=== PATIENT | female | born 1935 ===

== ENCOUNTER 2017-12-20 13:01 | Inpatient (IN) | payer MEDICARE ==
[2017-12-20] MEDS ORDERED: IPRATROPIUM-ALBUTEROL 3 ML NEB INHALATION STA (13:19)
--- NOTE | 2017-12-20 13:21 | ED ---
General Adult HPI - General Chief complaint: Shortness of Breath Stated complaint: Pneumonia Time Seen by Provider: 12/20/17 13:12 Source: patient, family, RN notes reviewed Mode of arrival: wheelchair Limitations: no limitations - History of Present Illness Initial comments: Patient is a pleasant 82-year-old female presenting to the emergency department with reported pneumonia. Patient has had cough and difficulty breathing for a couple of days. Patient did see Dr. Tiwari and had chest x-ray showing pneumonia. Patient has arty started antibiotics and steroids. Patient has been fatigued. No fevers. Patient has had cough with green sputum. - Related Data Home Medications Medication Instructions Recorded Confirmed Aspirin 81 mg PO DAILY 02/09/15 12/20/17 Atenolol [Atenolol] 50 mg PO QAM 02/09/15 12/20/17 Fluticasone/Salmeterol [Advair 1 puff INHALATION RT-BID 02/09/15 12/20/17 250-50 Diskus] Meloxicam [Meloxicam] 15 mg PO DAILY 02/09/15 12/20/17 Multivitamins, Thera [Multivitamin] 1 tab PO DAILY 02/09/15 12/20/17 Ripley-3 Fatty Acids/Fish Oil [Fish 1 tab PO DAILY 02/09/15 12/20/17 Oil 1,000 mg Softgel] Ascorbic Acid [Vitamin C] 500 mg PO DAILY 12/20/17 12/20/17 Azithromycin [Zithromax Z-pack] See Taper PO DIRECTED 12/20/17 12/20/17 Calcium 1,000 mg PO DAILY 12/20/17 12/20/17 Levothyroxine Sodium [Synthroid] 50 mcg PO DAILY 12/20/17 12/20/17 Pantoprazole Sodium [Protonix] 40 mg PO BID 12/20/17 12/20/17 amLODIPine [Norvasc] 10 mg PO HS 12/20/17 12/20/17 methylPREDNISolone [Medrol Dose See Taper PO DIRECTED 12/20/17 12/20/17 Pack] Allergies Allergy/AdvReac Type Severity Reaction Status Date / Time latex Allergy Rash/Hives Verified 12/20/17 13:55 Penicillins Allergy Itching Verified 12/20/17 13:55 Mushroom AdvReac Nausea & Verified 12/20/17 13:55 Vomiting Review of Systems ROS Statement: Those systems with pertinent positive or pertinent negative responses have been documented in the HPI. ROS Other: All systems not noted in ROS Statement are negative. Constitutional: Denies: fever Eyes: Denies: eye pain ENT: Denies: ear pain Respiratory: Reports: cough, dyspnea Cardiovascular: Denies: chest pain Endocrine: Reports: fatigue Gastrointestinal: Denies: abdominal pain Genitourinary: Denies: dysuria Musculoskeletal: Denies: back pain Skin: Denies: rash Neurological: Denies: weakness Past Medical History Past Medical History: COPD, GERD/Reflux, Hyperlipidemia, Hypertension, Thyroid Disorder Additional Past Medical History / Comment(s): SEVERE ACID REFLUX AND DIFFICULTY SWALLOWING MEAT AND CERTAIN FOODS. History of Any Multi-Drug Resistant Organisms: None Reported Past Surgical History: Cholecystectomy, Joint Replacement Additional Past Surgical History / Comment(s): RT KNEE REPLACEMENT, COLONOSCOPY Past Anesthesia/Blood Transfusion Reactions: No Reported Reaction Past Psychological History: No Psychological Hx Reported Smoking Status: Former smoker Past Alcohol Use History: Rare Past Drug Use History: None Reported - Past Family History Mother Family Medical History: Unable to Obtain Sister(s) Family Medical History: Deep Vein Thrombosis (DVT) Father Family Medical History: Deep Vein Thrombosis (DVT) Brother(s) Family Medical History: Deep Vein Thrombosis (DVT) General Exam Limitations: no limitations General appearance: alert, in no apparent distress Head exam: Present: atraumatic Eye exam: Present: normal appearance, PERRL ENT exam: Present: normal oropharynx Neck exam: Present: normal inspection Respiratory exam: Present: wheezes Cardiovascular Exam: Present: regular rate, normal rhythm GI/Abdominal exam: Present: soft. Absent: tenderness Extremities exam: Present: normal inspection. Absent: pedal edema, calf tenderness Neurological exam: Present: alert Psychiatric exam: Present: normal affect, normal mood Skin exam: Present: normal color Course Vital Signs 12/20/17 12/20/17 12/20/17 13:07 13:37 13:47 Temperature 98.1 F Pulse Rate 90 86 100 Respiratory 20 Rate Blood Pressure 120/63 O2 Sat by Pulse 88 L Oximetry 12/20/17 14:45 Temperature 98.9 F Pulse Rate 94 Respiratory 20 Rate Blood Pressure 132/84 O2 Sat by Pulse 93 L Oximetry - Reevaluation(s) Reevaluation #1: 12/20/17 15:42 Patient does meet sepsis criteria diagnosed at 1542. IV antibiotics will be started. Blood culture and lactic acid have been ordered. EKG Findings - EKG Comments: EKG Findings:: Normal sinus rhythm 97. GA 158. QRS 88. QT 362. QTC 459. Left axis. Normal QRS. Nonspecific ST-T. Medical Decision Making - Medical Decision Making Patient reevaluated. Patient and family updated. Case was discussed in detail with Dr. cornejo, who will admit for patient's stated primary care physician Dr. Newsome. - Lab Data Result diagrams: 12/20/17 13:46 12/20/17 13:46 Lab Results 12/20/17 12/20/17 12/20/17 Range/Units 13:46 13:46 13:46 WBC 12.6 H (3.8-10.6) k/uL RBC 4.65 (3.80-5.40) m/uL Hgb 13.6 (11.4-16.0) gm/dL Hct 40.6 (34.0-46.0) % MCV 87.3 (80.0-100.0) fL MCH 29.3 (25.0-35.0) pg MCHC 33.6 (31.0-37.0) g/dL RDW 13.5 (11.5-15.5) % Plt Count 195 (150-450) k/uL Neutrophils % 89 % Lymphocytes % 9 % Monocytes % 2 % Eosinophils % 0 % Basophils % 0 % Neutrophils # 11.3 H (1.3-7.7) k/uL Lymphocytes # 1.1 (1.0-4.8) k/uL Monocytes # 0.2 (0-1.0) k/uL Eosinophils # 0.0 (0-0.7) k/uL Basophils # 0.0 (0-0.2) k/uL PT (9.0-12.0) sec INR (<1.2) APTT (22.0-30.0) sec Sodium 135 L (137-145) mmol/L Potassium 4.1 (3.5-5.1) mmol/L Chloride 100 (98-107) mmol/L Carbon Dioxide 25 (22-30) mmol/L Anion Gap 10 mmol/L BUN 14 (7-17) mg/dL Creatinine 0.60 (0.52-1.04) mg/dL Est GFR (MDRD) Af Amer >60 (>60 ml/min/1.73 sqM) Est GFR (MDRD) Non-Af >60 (>60 ml/min/1.73 sqM) Glucose 133 H (74-99) mg/dL Plasma Lactic Acid Timi (0.7-2.0) mmol/L Calcium 9.3 (8.4-10.2) mg/dL Total Bilirubin 0.4 (0.2-1.3) mg/dL AST 81 H (14-36) U/L ALT 59 H (9-52) U/L Alkaline Phosphatase 146 H (38-126) U/L Total Protein 6.0 L (6.3-8.2) g/dL Albumin 3.5 (3.5-5.0) g/dL Influenza Type A RNA Detected H (Not Detectd) Influenza Type B (PCR) Not Detected (Not Detectd) 12/20/17 12/20/17 Range/Units 13:46 13:46 WBC (3.8-10.6) k/uL RBC (3.80-5.40) m/uL Hgb (11.4-16.0) gm/dL Hct (34.0-46.0) % MCV (80.0-100.0) fL MCH (25.0-35.0) pg MCHC (31.0-37.0) g/dL RDW (11.5-15.5) % Plt Count (150-450) k/uL Neutrophils % % Lymphocytes % % Monocytes % % Eosinophils % % Basophils % % Neutrophils # (1.3-7.7) k/uL Lymphocytes # (1.0-4.8) k/uL Monocytes # (0-1.0) k/uL Eosinophils # (0-0.7) k/uL Basophils # (0-0.2) k/uL PT 9.5 (9.0-12.0) sec INR 1.0 (<1.2) APTT 23.5 (22.0-30.0) sec Sodium (137-145) mmol/L Potassium (3.5-5.1) mmol/L Chloride (98-107) mmol/L Carbon Dioxide (22-30) mmol/L Anion Gap mmol/L BUN (7-17) mg/dL Creatinine (0.52-1.04) mg/dL Est GFR (MDRD) Af Amer (>60 ml/min/1.73 sqM) Est GFR (MDRD) Non-Af (>60 ml/min/1.73 sqM) Glucose (74-99) mg/dL Plasma Lactic Acid Timi 1.0 (0.7-2.0) mmol/L Calcium (8.4-10.2) mg/dL Total Bilirubin (0.2-1.3) mg/dL AST (14-36) U/L ALT (9-52) U/L Alkaline Phosphatase (38-126) U/L Total Protein (6.3-8.2) g/dL Albumin (3.5-5.0) g/dL Influenza Type A RNA (Not Detectd) Influenza Type B (PCR) (Not Detectd) - Radiology Data Radiology results: image reviewed (Chest x-ray shows basilar atelectasis versus scarring versus pneumonia.) Critical Care Time Critical Care Time: Yes Total Critical Care Time: 32 Disposition Clinical Impression: COPD (chronic obstructive pulmonary disease), Sepsis, Pneumonia, Influenza Disposition: ADMITTED IP TO THIS [facility] Condition: Serious Referrals: Nicki Tiwari MD [Primary Care Provider] - 1-2 days Decision Time: 15:44
[2017-12-20 14:01] LABS: Basophils % (A) 0 %; Eosinophils % (A) 0 %; HCT 40.6 % (34.0-46.0); HGB 13.6 gm/dL (11.4-16.0); Lymphocytes # (A) 1.1 k/uL (1.0-4.8); Lymphocytes % (A) 9 %; MCH 29.3 pg (25.0-35.0); MCHC 33.6 g/dL (31.0-37.0); MCV 87.3 fL (80.0-100.0); Monocytes # (A) 0.2 k/uL (0-1.0); Monocytes % (A) 2 %; Neutrophils # (A) 11.3 k/uL (1.3-7.7); Neutrophils % (A) 89 %; Platelet Count 195 k/uL (150-450); RBC 4.65 m/uL (3.80-5.40); RDW 13.5 % (11.5-15.5); WBC 12.6 k/uL (3.8-10.6)
[2017-12-20 14:06] LABS: Partial Thromboplastin Time 23.5 sec (22.0-30.0); Prothrombin Time 9.5 sec (9.0-12.0)
[2017-12-20 14:10] LABS: ALT 59 U/L (9-52); AST 81 U/L (14-36); Albumin 3.5 g/dL (3.5-5.0); Alkaline Phosphatase 146 U/L (38-126); Anion Gap 10 mmol/L; Blood Urea Nitrogen 14 mg/dL (7-17); Calcium 9.3 mg/dL (8.4-10.2); Carbon Dioxide 25 mmol/L (22-30); Chloride 100 mmol/L (98-107); Glucose 133 mg/dL (74-99); Potassium 4.1 mmol/L (3.5-5.1); Sodium 135 mmol/L (137-145); Total Bilirubin 0.4 mg/dL (0.2-1.3)
--- NOTE | 2017-12-20 14:15 | XR ---
EXAMINATION TYPE: XR chest 2V DATE OF EXAM: 12/20/2017 COMPARISON: Prior chest x-ray 12/20/2017 from outside institution, prior chest x-ray 01/19/2017 HISTORY: Dyspnea, left-sided pain and pneumonia TECHNIQUE: Frontal and lateral views of the chest are obtained. FINDINGS: Bandlike areas of increased attenuation are noted at the lung bases. No evident pneumothor ax or pleural effusion. Cardiac mediastinal silhouette, pulmonary vascularity and reuben are stable. Pr ominent lung volume may be indicative of underlying COPD. Left upper lobe pulmonary nodule. Lead. Patient is rotated. IMPRESSION: Basilar atelectasis versus scarring, correlate to exclude pneumonia. Follow-up as indica milka. Lung nodule in the left upper lobe is partially obscured.
[2017-12-20] MEDS ORDERED: OSELTAMIVIR 75 MG CAP PO ONE (15:45)
[2017-12-20] MEDS ORDERED: AZTREONAM 2 GM in SODIUM CHLORIDE 0.9% 100 ML IVPB STA (15:45)
[2017-12-20] MEDS ORDERED: PNEUMONIA PROTOCOL UTILIZED 1 EACH MISC PO PRN (15:45)
[2017-12-20] MEDS ORDERED: IPRATROPIUM-ALBUTEROL 3 ML NEB INHALATION PRN (15:45)
[2017-12-20] MEDS ORDERED: LEVOFLOXACIN 750MG-D5W PMX 750 MG in DEXTROSE/WATER 1 150ML.BAG IVPB STA (15:45)
[2017-12-20] MEDS: IPRATROPIUM-ALBUTEROL 3 ML NEB INHALATION SCH ×2 (16:00→19:05)
[2017-12-20] MEDS: SODIUM CHLORIDE 0.9% 1,000 ML IV SCH (16:08)
[2017-12-20] MEDS ORDERED: ONDANSETRON 4 MG/2 ML VIAL IVP STA (18:20)
[2017-12-20] MEDS ORDERED: ONDANSETRON 4 MG/2 ML VIAL IVP PRN (18:20)
[2017-12-20] MEDS: SYMBICORT 80-4.5 MCG INHALER INHALATION SCH (19:54)
[2017-12-20] MEDS: amLODIPine 10 MG TAB PO SCH (20:57)
[2017-12-20] MEDS: PANTOPRAZOLE 40 MG TABLET PO SCH (20:57)
[2017-12-20] MEDS: OSELTAMIVIR 75 MG CAP PO SCH (20:58)
[2017-12-20] MEDS: MELATONIN 5 MG TABLET PO SCH (20:58)
[2017-12-20] MEDS: methylPREDNISolone SOD SUCCI 40 MG/ML 1 ML VIAL IV SCH (22:32)
--- NOTE | 2017-12-20 22:42 | HP ---
HISTORY AND PHYSICAL DATE OF ADMISSION: 12/20/2017 PRESENTING COMPLAINT: Weak, tired, cough. HISTORY OF PRESENTING COMPLAINT: A very pleasant 82-year-old patient of Dr. iTwari whose family doctor is Dr. Newsome. Chronic stable medical conditions include GERD, hypertension, hyperlipidemia, hypothyroid. The patient has a known history of COPD. The patient has been short of breath for quite a while for 3 days, becoming increasingly short of breath, cough, congested, not really expectorating much. No fever. Decreased appetite, tired, run down and came to Dr. Tiwari's office, where she was admitted here. The patient was put on IV antibiotics. Chest x-ray did show some atelectasis and questionable infiltrate. The patient is feeling tired and run down, wheezing. REVIEW OF SYSTEMS: CONSTITUTIONAL: Weak, tired, decreased appetite. HEENT: None. RESPIRATORY: As above. CARDIOVASCULAR: None. GASTROINTESTINAL: Heartburn. GENITOURINARY: None. MUSCULOSKELETAL: None. DERMATOLOGICAL: None. HEMATOLOGIC: None. LYMPHATIC: None. PSYCHIATRY: None. NEUROLOGICAL: None. PAST HISTORY: COPD, GERD, hypertension, hyperlipidemia, hypothyroid. PAST SURGICAL HISTORY: Cholecystectomy, right knee replacement, bilateral cataracts. SOCIAL HISTORY: Lives with her son. The patient has smoked over 50 years, a few cigarettes a day. Alcohol rarely. FAMILY HISTORY: Reviewed, noncontributory to presentation. HOME MEDICATIONS: 1. Medrol Dosepak. 2. Zithromax Z-Yasmany. 3. Norvasc 10 mg q.h.s. 4. Protonix 40 mg b.i.d. 5. Fish oil 1 tablet p.o. daily. 6. Multivitamin 1 tablet p.o. daily. 7. Meloxicam 50 mg p.o. daily. 8. Synthroid 50 mcg p.o. daily. 9. Advair 250/50, 1 puff b.i.d. 10.Calcium 1000 mg p.o. daily. 11.Atenolol 50 mg p.o. daily. 12.Aspirin 81 mg p.o. daily. 13.Vitamin C 500 mg p.o. daily. ALLERGIES: To LATEX, PENICILLIN, MUSHROOM. EXAMINATION: VITAL SIGNS: On presentation, temperature 100.6, pulse 82, respirations 20, blood pressure 120/54, pulse ox 94% on 2L. GENERAL APPEARANCE: Well built, BMI 31.2, lying in bed, tired appearing. EYES: Pupils equal. Conjunctivae normal. HEENT: External nose and ears normal. Oral cavity normal. NECK: JVD not raised. Mass not palpable. RESPIRATORY: Effort increased. LUNGS: Decreased breath sounds. Prolonged expiration, wheezing, some crackles. CARDIOVASCULAR: First and second sounds normal. No edema. ABDOMEN: Soft, nontender. Liver and spleen not palpable. LYMPHATIC: No lymph nodes palpable in neck or axillae. PSYCHIATRY: Alert and oriented x3. Mood and affect slightly anxious-appearing. NEUROLOGICAL: Pupils equal. Cranial nerves grossly intact. Power and sensation grossly intact. INVESTIGATION: Chest x-ray showing some atelectasis, questionable infiltrate. White count 12.6, hemoglobin 13.6. Potassium 4.1, BUN creatinine are normal. Influenza A RNA positive. ASSESSMENT: 1. Acute influenza A pneumonitis, possible bacterial component causing sepsis, present on admission. 2. Acute chronic obstructive pulmonary disease exacerbation from above. 3. Severe gastroesophageal reflux disease. 4. Essential hypertension. 5. Hyperlipidemia. 6. Hypothyroid. 7. Obesity; BMI 31.2. PLAN: Home medications are resumed. Patient is put on DuoNeb inhaled bronchodilators. Bronchodilator include inhaled steroids. We will leave the patient on IV Levaquin. Pulmonary was consulted. Care was discussed with the patient. TONIE / DAVID: [id number] /
[2017-12-21] MEDS ORDERED: AZTREONAM 2 GM in SODIUM CHLORIDE 0.9% 100 ML IVPB SCH ×2
[2017-12-21] MEDS: methylPREDNISolone SOD SUCCI 40 MG/ML 1 ML VIAL IV SCH ×4 (00:28→23:20)
[2017-12-21] MEDS: SODIUM CHLORIDE 0.9% 1,000 ML IV SCH ×3 (03:10→13:23)
[2017-12-21] MEDS: LEVOTHYROXINE 50 MCG TAB PO SCH (06:08)
[2017-12-21] MEDS: IPRATROPIUM-ALBUTEROL 3 ML NEB INHALATION SCH ×4 (08:21→20:14)
[2017-12-21] MEDS: BUDESONIDE 1 MG/2 ML NEBU INHALATION SCH ×2 (08:21→08:48)
[2017-12-21] MEDS: SYMBICORT 80-4.5 MCG INHALER INHALATION SCH ×2 (08:22→20:14)
[2017-12-21] MEDS: OSELTAMIVIR 75 MG CAP PO SCH ×3 (08:26→21:51)
[2017-12-21] MEDS: ASCORBIC ACID 500 MG TAB PO SCH ×2 (08:26→08:34)
[2017-12-21] MEDS: PANTOPRAZOLE 40 MG TABLET PO SCH ×2 (08:26→21:56)
[2017-12-21] MEDS: ASPIRIN 81 MG PO SCH (08:26)
[2017-12-21] MEDS: ATENOLOL 50 MG TAB PO SCH (08:26)
[2017-12-21] MEDS: MELOXICAM 7.5 MG TAB PO SCH (08:26)
[2017-12-21] MEDS: ENOXAPARIN 40 MG/0.4 ML SYRINGE SQ SCH (08:26)
[2017-12-21] MEDS: ACETAMINOPHEN TAB 325 MG TAB PO PRN ×3 (11:01→23:20)
[2017-12-21 11:53] VITALS: BMI 31.1
--- NOTE | 2017-12-21 12:32 | P.CNPUL ---
History of Present Illness Consult date: 12/21/17 Requesting physician: Sacha Agarwal Reason for consult: dyspnea, cough, chest pain, asthma Chief complaint: Dyspnea, weakness, productive cough History of present illness: Ysabel is a 82-year-old white female patient that sees Dr. Pagan in our office for her history of asthma, presented to the emergency department on 12/12/2017 and 1319 with complaints of increasing dyspnea, generalized weakness, cough with production of thick greenish yellow sputum. She denied fever, chills. Started 2 days ago, and became progressively worse. She went to see Dr. Pagan in the office on 12/20/2017, was started on oral Zithromax, and Medrol Dosepak. Patient was complaining of left-sided pleuritic pain, exacerbated by coughing spells. There was was a suspicion for limited left lower lobe infiltrate and patient was advised to come to the hospital for admission, but initially the patient refused. However later that day in view of her progressing symptoms and concern from her son, she presented to the emergency department for admission. Chest x-ray from 12/12/2017 showed basilar atelectasis versus scarring, there is a left upper lobe lung nodule previously noted on chest x- rays which is being followed by Dr. Pagan. Twelve-lead EKG showed normal sinus rhythm, without acute ST elevation. Patient did have a low-grade fever with a temp of 100.6F. She was noted to be hypoxic with a pulse ox of 88% on room air on admission. Lab work showed WBC at 12.6, hemoglobin 13.6, no evidence of coagulopathy, sodium is 135, the rest of the electrolyte panel was negative, renal profile was within normal limits. Plasma lactic acid was 1.0, AST is 81, AST was 59, alk phos was 146. Influenza screen was positive for influenza A. She was started on aztreonam and Levaquin, and the aztreonam was later discontinued. She was started on Tamiflu, DuoNeb nebulized treatments, IV steroids, and admitted for further management. Review of Systems All systems: negative Constitutional: Denies chills, Denies fever Eyes: denies blurred vision, denies pain Ears, nose, mouth and throat: Denies headache, Denies sore throat Cardiovascular: Denies chest pain, Denies shortness of breath Respiratory: Denies cough Gastrointestinal: Denies abdominal pain, Denies diarrhea, Denies nausea, Denies vomiting Genitourinary: Denies dysuria, Denies hematuria Musculoskeletal: Denies myalgias Integumentary: Denies pruritus, Denies rash Neurological: Denies numbness, Denies weakness Psychiatric: Denies anxiety, Denies depression Endocrine: Denies fatigue, Denies weight change Past Medical History Past Medical History: COPD, GERD/Reflux, Hyperlipidemia, Hypertension, Thyroid Disorder Additional Past Medical History / Comment(s): SEVERE ACID REFLUX AND DIFFICULTY SWALLOWING MEAT AND CERTAIN FOODS. History of Any Multi-Drug Resistant Organisms: None Reported Past Surgical History: Cholecystectomy, Joint Replacement Additional Past Surgical History / Comment(s): RT KNEE REPLACEMENT, COLONOSCOPY , rhoda cataracts Past Anesthesia/Blood Transfusion Reactions: No Reported Reaction Smoking Status: Former smoker - Past Family History Mother Family Medical History: Unable to Obtain Sister(s) Family Medical History: Deep Vein Thrombosis (DVT) Father Family Medical History: Deep Vein Thrombosis (DVT) Brother(s) Family Medical History: Deep Vein Thrombosis (DVT) Medications and Allergies Home Medications Medication Instructions Recorded Confirmed Type Aspirin 81 mg PO DAILY 02/09/15 12/20/17 History Atenolol [Atenolol] 50 mg PO QAM 02/09/15 12/20/17 History Fluticasone/Salmeterol [Advair 1 puff INHALATION RT-BID 02/09/15 12/20/17 History 250-50 Diskus] Meloxicam [Meloxicam] 15 mg PO DAILY 02/09/15 12/20/17 History Multivitamins, Thera [Multivitamin] 1 tab PO DAILY 02/09/15 12/20/17 History Douglas-3 Fatty Acids/Fish Oil [Fish 1 tab PO DAILY 02/09/15 12/20/17 History Oil 1,000 mg Softgel] Ascorbic Acid [Vitamin C] 500 mg PO DAILY 12/20/17 12/20/17 History Azithromycin [Zithromax Z-pack] See Taper PO DIRECTED 12/20/17 12/20/17 History Calcium 1,000 mg PO DAILY 12/20/17 12/20/17 History Levothyroxine Sodium [Synthroid] 50 mcg PO DAILY 12/20/17 12/20/17 History Pantoprazole Sodium [Protonix] 40 mg PO BID 12/20/17 12/20/17 History amLODIPine [Norvasc] 10 mg PO HS 12/20/17 12/20/17 History methylPREDNISolone [Medrol Dose See Taper PO DIRECTED 12/20/17 12/20/17 History Pack] Allergies Allergy/AdvReac Type Severity Reaction Status Date / Time latex Allergy Rash/Hives Verified 12/20/17 13:55 Penicillins Allergy Itching Verified 12/20/17 13:55 Mushroom AdvReac Nausea & Verified 12/20/17 13:55 Vomiting Physical Exam Vitals: Vital Signs Temp Pulse Pulse Resp BP BP Pulse Ox 12/21/17 08:36 80 12/21/17 08:22 76 12/21/17 08:00 16 12/21/17 07:00 97.2 F L 74 16 110/64 94 L 12/20/17 23:00 98.7 F 85 20 97/56 93 L 12/20/17 18:56 96 12/20/17 18:43 92 12/20/17 17:19 97.4 F L 87 16 139/71 94 L 12/20/17 17:00 87 12/20/17 16:09 100.6 F H 82 20 129/64 94 L 12/20/17 14:45 98.9 F 94 20 132/84 93 L 12/20/17 13:47 100 12/20/17 13:37 86 12/20/17 13:07 98.1 F 90 20 120/63 88 L Intake and Output 12/20/17 12/21/17 12/21/17 22:59 06:59 14:59 Intake Total 1050 100 Balance 1050 100 Intake: Intake, IV Titration 1050 Amount Aztreonam 2 gm In Sodium 100 Chloride 0.9% 100 ml @ 100 mls/hr IVPB ONCE STA Rx#:[id number] Levofloxacin 750Mg-D5w 150 Pmx 750 mg In Dextrose/ Water 1 150ml.bag @ 100 mls/hr IVPB ONCE STA Rx#: [id number] Sodium Chloride 0.9% 1, 800 000 ml @ 100 mls/hr IV . Q10H MAUREEN Rx#:[id number] Oral 100 Other: Voiding Method Toilet Toilet Bedside Commode Bedside Commode # Voids 2 GENERAL EXAM: Alert, pleasant, 82-year-old white female, comfortable in no apparent distress. HEAD: Normocephalic/atraumatic. EYES: Normal reaction of pupils, equal size. Conjunctiva pink, sclera white. NOSE: Clear with pink turbinates. THROAT: No erythema or exudates. NECK: No masses, no JVD, no thyroid enlargement, no adenopathy. CHEST: No chest wall deformity. Symmetrical expansion. LUNGS: Equal air entry with diffuse wheezes throughout the lung islveira CVS: Regular rate and rhythm, normal S1 and S2, no gallops, no murmurs, no rubs ABDOMEN: Soft, nontender. No hepatosplenomegaly, normal bowel sounds, no guarding or rigidity. EXTREMITIES: No clubbing, no edema, no cyanosis, 2+ pulses and upper and lower extremities. MUSCULOSKELETAL: Muscle strength and tone normal. SPINE: No scoliosis or deformity SKIN: No rashes CENTRAL NERVOUS SYSTEM: Alert and oriented -3. No focal deficits, tone is normal in all 4 extremities. PSYCHIATRIC: Alert and oriented -3. Appropriate affect. Intact judgment and insight. Results - Laboratory Findings CBC and BMP: 12/20/17 13:46 12/20/17 13:46 PT/INR, D-dimer PT 9.5 sec (9.0-12.0) 12/20/17 13:46 INR 1.0 (<1.2) 12/20/17 13:46 Abnormal lab findings: Abnormal Labs 12/20/17 12/20/17 12/20/17 13:46 13:46 13:46 WBC 12.6 H Neutrophils # 11.3 H Sodium 135 L Glucose 133 H AST 81 H ALT 59 H Alkaline Phosphatase 146 H Total Protein 6.0 L Influenza Type A RNA Detected H - Diagnostic Findings Chest x-ray: report reviewed Additional studies: Twelve-lead EKG reviewed Assessment and Plan Plan: Assessment: #1. Acute exacerbation of mild intermittent asthma, due to influenza A tracheobronchitis. Chest x-ray is negative for any evidence of pneumonia. There is evidence of basilar atelectasis versus scarring. There is a chronic left upper lobe lung nodule that is being followed on an outpatient basis. #2. History of mild intermittent asthma, maintained on Advair, albuterol nebulized treatments #3. GERD/reflux #4. Hyperlipidemia, hypertension #5. Hypothyroidism #6. Remote history of smoking, quit 60 years ago #7. Osteoarthritis Plan: Continue Levaquin, continue Tamiflu, continue DuoNeb nebulized treatments, Symbicort, continue IV steroids. Sputum culture. Further recommendations to follow based on patient's clinical status. I performed a history & physical examination of the patient and discussed their management with my nurse practitioner, Myrtle Blackmon. I reviewed the nurse practitioner's note and agree with the documented findings and plan of care. Lung sounds are positive for diffuse wheezes throughout the lung silveira. The findings and the impression was discussed with the patient. I attest to the documentation by the nurse practitioner. Time with Patient: Greater than 30
--- NOTE | 2017-12-21 13:55 | XR ---
EXAMINATION TYPE: XR chest 2V DATE OF EXAM: 12/21/2017 COMPARISON: 12/20/17 HISTORY: Shortness of breath TECHNIQUE: Frontal and lateral views of the chest are obtained. FINDINGS: Scattered senescent parenchymal changes noted. Hyperinflation compatible with COPD. No evidence for infiltrate. No evidence for atelectasis. Heart size is stable. Mediastinal structures are stable and grossly unremarkable. No evidence for hilar prominence. Degenerative changes dorsal spine. IMPRESSION: 1. No evidence for acute pulmonary disease.
[2017-12-21] MEDS ORDERED: LEVOFLOXACIN 750MG-D5W PMX 750 MG in DEXTROSE/WATER 1 150ML.BAG IVPB SCH (16:00)
--- NOTE | 2017-12-21 21:09 | PN ---
PROGRESS NOTE DATE OF SERVICE: December 21, 2017. PRESENT COMPLAINT: Tired, cough. INTERVAL HISTORY: Patient admitted with acute influenza A pneumonitis, less short of breath, less cough. Did eat a little bit better. Still got a congested cough. Son at the bedside. REVIEW OF SYSTEMS: Done for constitutional, cardiovascular, GI, pulmonary and relevant findings as above. CURRENT MEDICATIONS: Reviewed that includes Tamiflu, Levaquin and Solu-Medrol IV. PHYSICAL EXAMINATION: Temperature 97.2, pulse 74, respirations 16, blood pressure 110/64, pulse ox 94% on room air. General appearance: Sitting up, less tired appearing. Eyes: Pupils equal. Conjunctivae normal. HEENT: External appearance of nose and ears normal. Oral cavity normal. Neck: JVD not raised. Mass not palpable. Respiratory effort increased. Lungs decreased breath sounds. Decreased wheezing. Decreased crackles. Cardiovascular 1st and second sounds normal. No edema. ABDOMEN: Soft, nontender. Liver and spleen not palpable. Psychiatry: Alert and oriented x3. Mood and affect normal. INVESTIGATIONS: Chest x-ray, nothing new reported. ASSESSMENT: 1. Acute influenza pneumonitis, possible bacterial component causing sepsis present on admission with some clinical response. 2. Acute chronic obstructive pulmonary disease exacerbation from above. 3. Severe gastroesophageal reflux disease. 4. Essential hypertension. 5. Hyperlipidemia. 6. Hypothyroid. 7. Obesity; BMI 31.2. PLAN: Continue current medication and treatment plan, including bronchodilators, steroids. We will switch the patient to oral Levaquin. Care was discussed with the patient and the son. Because oral intake is improving, we will DC the IV fluids. MMODL / IJN: [id number] /
[2017-12-21] MEDS: amLODIPine 10 MG TAB PO SCH (21:56)
[2017-12-21] MEDS: MELATONIN 5 MG TABLET PO SCH (21:58)
[2017-12-22] MEDS: LEVOTHYROXINE 50 MCG TAB PO SCH (06:10)
[2017-12-22] MEDS: OSELTAMIVIR 75 MG CAP PO SCH ×2 (08:12→21:28)
[2017-12-22] MEDS: methylPREDNISolone SOD SUCCI 40 MG/ML 1 ML VIAL IV SCH ×2 (08:18→15:35)
[2017-12-22] MEDS: PANTOPRAZOLE 40 MG TABLET PO SCH ×2 (08:18→21:28)
[2017-12-22] MEDS: MELOXICAM 7.5 MG TAB PO SCH (08:18)
[2017-12-22] MEDS: ASPIRIN 81 MG PO SCH (08:18)
[2017-12-22] MEDS: ATENOLOL 50 MG TAB PO SCH (08:18)
[2017-12-22] MEDS: ENOXAPARIN 40 MG/0.4 ML SYRINGE SQ SCH (08:19)
[2017-12-22] MEDS: ASCORBIC ACID 500 MG TAB PO SCH (08:19)
[2017-12-22 08:57] LABS: Basophils % (A) 0 %; Eosinophils % (A) 0 %; HCT 38.6 % (34.0-46.0); HGB 12.7 gm/dL (11.4-16.0); Lymphocytes # (A) 0.9 k/uL (1.0-4.8); Lymphocytes % (A) 13 %; MCH 29.2 pg (25.0-35.0); MCHC 32.8 g/dL (31.0-37.0); Mean Platelet Volume 8.1; Monocytes # (A) 0.2 k/uL (0-1.0); Monocytes % (A) 2 %; Neutrophils # (A) 5.9 k/uL (1.3-7.7); Neutrophils % (A) 84 %; Platelet Count 205 k/uL (150-450); RBC 4.34 m/uL (3.80-5.40); RDW 13.6 % (11.5-15.5)
[2017-12-22 09:04] LABS: Anion Gap 9 mmol/L; Blood Urea Nitrogen 13 mg/dL (7-17); Calcium 8.7 mg/dL (8.4-10.2); Carbon Dioxide 21 mmol/L (22-30); Chloride 108 mmol/L (98-107); Glucose 163 mg/dL (74-99); Potassium 4.1 mmol/L (3.5-5.1); Sodium 138 mmol/L (137-145)
[2017-12-22] MEDS: IPRATROPIUM-ALBUTEROL 3 ML NEB INHALATION SCH ×4 (10:42→19:41)
[2017-12-22] MEDS: SYMBICORT 80-4.5 MCG INHALER INHALATION SCH ×2 (10:42→19:41)
[2017-12-22] MEDS: ACETAMINOPHEN TAB 325 MG TAB PO PRN (11:22)
[2017-12-22] MEDS: LEVOFLOXACIN 750 MG TAB PO SCH (11:22)
--- NOTE | 2017-12-22 12:10 | P.PN ---
Subjective Progress Note Date: 12/22/17 Principal diagnosis: Acute exacerbation of mild intermittent asthma due to influenza A tracheobronchitis Ysabel is a 82-year-old white female patient that sees Dr. Pagan in our office for her history of asthma, presented to the emergency department on 12/12/2017 and 1319 with complaints of increasing dyspnea, generalized weakness, cough with production of thick greenish yellow sputum. She denied fever, chills. Started 2 days ago, and became progressively worse. She went to see Dr. Pagan in the office on 12/20/2017, was started on oral Zithromax, and Medrol Dosepak. Patient was complaining of left-sided pleuritic pain, exacerbated by coughing spells. There was was a suspicion for limited left lower lobe infiltrate and patient was advised to come to the hospital for admission, but initially the patient refused. However later that day in view of her progressing symptoms and concern from her son, she presented to the emergency department for admission. Chest x-ray from 12/12/2017 showed basilar atelectasis versus scarring, there is a left upper lobe lung nodule previously noted on chest x- rays which is being followed by Dr. Pagan. Twelve-lead EKG showed normal sinus rhythm, without acute ST elevation. Patient did have a low-grade fever with a temp of 100.6F. She was noted to be hypoxic with a pulse ox of 88% on room air on admission. Lab work showed WBC at 12.6, hemoglobin 13.6, no evidence of coagulopathy, sodium is 135, the rest of the electrolyte panel was negative, renal profile was within normal limits. Plasma lactic acid was 1.0, AST is 81, AST was 59, alk phos was 146. Influenza screen was positive for influenza A. She was started on aztreonam and Levaquin, and the aztreonam was later discontinued. She was started on Tamiflu, DuoNeb nebulized treatments, IV steroids, and admitted for further management. On 12/22/2017 patient seen in follow-up. She is sitting up in the chair, appears fairly comfortable, however she states she is having persistent chest tightness, and left costal pain which is exacerbated by coughing. Her cough is productive of white sputum, lung sounds are positive for end expiratory wheezes. She states is hard for her to breathe today. She is on 2 L per nasal cannula with O2 sat 95%. She is afebrile. Blood culture is negative at the 24- hour alexis and sputum culture is pending. His blood work shows that would be see of 7.0, hemoglobin is 12.7, chloride is 108, carbon dioxide is 21, renal profile is within normal limits. Patient is getting Tamiflu and Levaquin, IV Solu-Medrol, Symbicort, nebulized treatments. Objective - Vital Signs Vital signs: Vital Signs Temp 96.9 F L 12/22/17 07:00 Pulse 84 12/22/17 11:45 Resp 18 12/22/17 07:00 BP 125/69 12/22/17 07:00 Pulse Ox 95 12/22/17 07:00 Intake & Output 12/21/17 12/22/17 12/22/17 18:59 06:59 18:59 Intake Total 300 240 Balance 300 240 Weight 74.843 kg 74.843 kg Intake: Oral 300 240 Other: Voiding Method Toilet Toilet Toilet Bedside Commode Bedside Commode Bedside Commode # Voids 2 1 2 - Exam GENERAL EXAM: Alert, pleasant, 82-year-old white female, comfortable in no apparent distress. HEAD: Normocephalic/atraumatic. EYES: Normal reaction of pupils, equal size. Conjunctiva pink, sclera white. NOSE: Clear with pink turbinates. THROAT: No erythema or exudates. NECK: No masses, no JVD, no thyroid enlargement, no adenopathy. CHEST: No chest wall deformity. Symmetrical expansion. LUNGS: Equal air entry with end expiratory wheezes, good air entry noted bilaterally CVS: Regular rate and rhythm, normal S1 and S2, no gallops, no murmurs, no rubs ABDOMEN: Soft, nontender. No hepatosplenomegaly, normal bowel sounds, no guarding or rigidity. EXTREMITIES: No clubbing, no edema, no cyanosis, 2+ pulses and upper and lower extremities. MUSCULOSKELETAL: Muscle strength and tone normal. SPINE: No scoliosis or deformity SKIN: No rashes CENTRAL NERVOUS SYSTEM: Alert and oriented -3. No focal deficits, tone is normal in all 4 extremities. PSYCHIATRIC: Alert and oriented -3. Appropriate affect. Intact judgment and insight. - Labs CBC & Chem 7: 12/22/17 08:16 12/22/17 08:16 Labs: Abnormal Lab Results - Last 24 Hours (Table) 12/22/17 12/22/17 Range/Units 08:16 08:16 Lymphocytes # 0.9 L (1.0-4.8) k/uL Chloride 108 H (98-107) mmol/L Carbon Dioxide 21 L (22-30) mmol/L Glucose 163 H (74-99) mg/dL Microbiology - Last 24 Hours (Table) 12/21/17 16:18 Gram Stain - Preliminary Sputum 12/20/17 13:33 Blood Culture - Preliminary Blood No Growth after 24 hours Assessment and Plan Plan: Assessment: #1. Acute exacerbation of mild intermittent asthma, due to influenza A tracheobronchitis. Chest x-ray is negative for any evidence of pneumonia. There is evidence of basilar atelectasis versus scarring. There is a chronic left upper lobe lung nodule that is being followed on an outpatient basis. #2. History of mild intermittent asthma, maintained on Advair, albuterol nebulized treatments #3. GERD/reflux #4. Hyperlipidemia, hypertension #5. Hypothyroidism #6. Remote history of smoking, quit 60 years ago #7. Osteoarthritis Plan: Patient is complaining of persistent dyspnea, chest tightness, and chest wall discomfort over left costal margin. Persistent coughing, now with production of white sputum. Continue Levaquin, continue Tamiflu, continue DuoNeb nebulized treatments, Symbicort, continue IV steroids. Sputum culture. Not ready for discharge. I performed a history & physical examination of the patient and discussed their management with my nurse practitioner, Myrtle Blackmon. I reviewed the nurse practitioner's note and agree with the documented findings and plan of care. Lung sounds are positive for diffuse wheezes throughout the lung silveira. The findings and the impression was discussed with the patient. I attest to the documentation by the nurse practitioner. Time with Patient: Less than 30
--- NOTE | 2017-12-22 16:56 | PN ---
PROGRESS NOTE DATE OF SERVICE: 12/22/2017 PRESENTING COMPLAINT: Cough, bronchospasm. INTERVAL HISTORY: Patient was admitted with acute influenza A pneumonitis. This morning she had an episode when she became more short of breath and bronchospastic; did feel better with breathing treatments. Now tired. Otherwise tolerating a diet. REVIEW OF SYSTEMS: Done for constitutional, cardiovascular, GI, pulmonary; relevant findings as above. CURRENT MEDICATIONS: Reviewed that include DuoNeb and IV Solu-Medrol and Tamiflu. PHYSICAL EXAMINATION: Temperature 96.9, pulse 75, respiration 18, blood pressure 125/69, pulse 95% on 2 L. GENERAL APPEARANCE: Sitting up, tired-appearing. EYES: Pupils equal. Conjunctivae normal. HEENT: External appearance of nose and ears normal. Oral cavity normal. NECK: JVD not raised. Mass not palpable. RESPIRATORY: Effort increased. LUNGS: Improved air entry. No crackles. CARDIOVASCULAR: First and second sounds normal. No edema. ABDOMEN: Soft, nontender. Liver and spleen not palpable. PSYCHIATRY: Alert and oriented x3. Mood and affect normal. INVESTIGATIONS: White count 7, potassium 4.1. ASSESSMENT: 1. Acute influenza A pneumonitis with possible bacterial component causing sepsis, present on admission. 2. Acute chronic obstructive pulmonary disease exacerbation with an episode of exacerbation this morning. 3. Severe gastroesophageal reflux disease. 4. Essential hypertension. 5. Hyperlipidemia. 6. Hypothyroidism. 7. Obesity; body mass index 31.2. PLAN: Continue current medication and treatment plan. The patient clinically has done better except for an episode this morning. Will watch for another 24 hours. Care was discussed with the patient. MMODL / IJN: [id number] /
[2017-12-22] MEDS: MELATONIN 5 MG TABLET PO SCH (21:28)
[2017-12-22] MEDS: amLODIPine 10 MG TAB PO SCH (21:28)
[2017-12-23] VITALS: RESP 16
[2017-12-23] MEDS ORDERED: methylPREDNISolone SOD SUCCI 40 MG/ML 1 ML VIAL IV SCH (06:00)
[2017-12-23] MEDS: LEVOTHYROXINE 50 MCG TAB PO SCH (06:09)
[2017-12-23] MEDS: IPRATROPIUM-ALBUTEROL 3 ML NEB INHALATION SCH ×3 (07:14→15:07)
[2017-12-23] MEDS: SYMBICORT 80-4.5 MCG INHALER INHALATION SCH (07:14)
[2017-12-23 07:42] LABS: Anion Gap 7 mmol/L; Blood Urea Nitrogen 18 mg/dL (7-17); Calcium 8.9 mg/dL (8.4-10.2); Carbon Dioxide 24 mmol/L (22-30); Chloride 106 mmol/L (98-107); Glucose 123 mg/dL (74-99); Potassium 3.8 mmol/L (3.5-5.1); Sodium 137 mmol/L (137-145)
[2017-12-23] MEDS: ASCORBIC ACID 500 MG TAB PO SCH ×2 (08:27→08:29)
[2017-12-23] MEDS: PANTOPRAZOLE 40 MG TABLET PO SCH (08:27)
[2017-12-23] MEDS: ENOXAPARIN 40 MG/0.4 ML SYRINGE SQ SCH (08:27)
[2017-12-23] MEDS: ATENOLOL 50 MG TAB PO SCH (08:27)
[2017-12-23] MEDS: MELOXICAM 7.5 MG TAB PO SCH (08:27)
[2017-12-23] MEDS: ASPIRIN 81 MG PO SCH (08:27)
[2017-12-23] MEDS: OSELTAMIVIR 75 MG CAP PO SCH (08:28)
[2017-12-23] MEDS: LEVOFLOXACIN 750 MG TAB PO SCH (12:43)
--- NOTE | 2017-12-23 14:57 | P.PN ---
Subjective Progress Note Date: 12/23/17 Principal diagnosis: Acute exacerbation of mild intermittent asthma secondary to influenza A tracheobronchitisGerry Grady is a 82-year-old white female patient that sees Dr. Pagan in our office for her history of asthma, presented to the emergency department on 12/12/2017 and 1319 with complaints of increasing dyspnea, generalized weakness, cough with production of thick greenish yellow sputum. She denied fever, chills. Started 2 days ago, and became progressively worse. She went to see Dr. Pagan in the office on 12/20/2017, was started on oral Zithromax, and Medrol Dosepak. Patient was complaining of left-sided pleuritic pain, exacerbated by coughing spells. There was was a suspicion for limited left lower lobe infiltrate and patient was advised to come to the hospital for admission, but initially the patient refused. However later that day in view of her progressing symptoms and concern from her son, she presented to the emergency department for admission. Chest x-ray from 12/12/2017 showed basilar atelectasis versus scarring, there is a left upper lobe lung nodule previously noted on chest x- rays which is being followed by Dr. Pagan. Twelve-lead EKG showed normal sinus rhythm, without acute ST elevation. Patient did have a low-grade fever with a temp of 100.6F. She was noted to be hypoxic with a pulse ox of 88% on room air on admission. Lab work showed WBC at 12.6, hemoglobin 13.6, no evidence of coagulopathy, sodium is 135, the rest of the electrolyte panel was negative, renal profile was within normal limits. Plasma lactic acid was 1.0, AST is 81, AST was 59, alk phos was 146. Influenza screen was positive for influenza A. She was started on aztreonam and Levaquin, and the aztreonam was later discontinued. She was started on Tamiflu, DuoNeb nebulized treatments, IV steroids, and admitted for further management. On 12/22/2017 patient seen in follow-up. She is sitting up in the chair, appears fairly comfortable, however she states she is having persistent chest tightness, and left costal pain which is exacerbated by coughing. Her cough is productive of white sputum, lung sounds are positive for end expiratory wheezes. She states is hard for her to breathe today. She is on 2 L per nasal cannula with O2 sat 95%. She is afebrile. Blood culture is negative at the 24- hour alexis and sputum culture is pending. His blood work shows that would be see of 7.0, hemoglobin is 12.7, chloride is 108, carbon dioxide is 21, renal profile is within normal limits. Patient is getting Tamiflu and Levaquin, IV Solu-Medrol, Symbicort, nebulized treatments. The patient is seen again today 12/23/2017 in follow-up on the regular medical floor. She is currently sitting up in the chair at the bedside. She is awake and alert in no acute distress. She denies any worsening shortness of breath, cough or congestion. She is nearly back to her baseline. Sputum and blood cultures reveal no growth to date. She is currently afebrile. Maintaining good O2 saturations in the mid 90s on room air. Hemodynamically stable. Objective - Vital Signs Vital signs: Vital Signs Temp 98.8 F 12/23/17 05:50 Pulse 71 12/23/17 07:26 Resp 16 12/23/17 05:50 BP 107/62 12/23/17 05:50 Pulse Ox 95 12/23/17 05:50 Intake & Output 12/22/17 12/23/17 12/23/17 18:59 06:59 18:59 Intake Total 720 Balance 720 Intake: Oral 720 Other: Voiding Method Toilet Toilet Bedside Commode Bedside Commode # Voids 2 3 - Exam GENERAL EXAM: Alert, active, comfortable in no apparent distress. HEAD: Normocephalic. EYES: Normal reaction of pupils, equal size. NOSE: Clear with pink turbinates. THROAT: No erythema or exudates. NECK: No masses, no JVD. CHEST: No chest wall deformity. LUNGS: Equal air entry with no crackles, wheeze, rhonchi or dullness. CVS: S1 and S2 normal with no audible murmur, regular rhythm. ABDOMEN: No hepatosplenomegaly, normal bowel sounds, no guarding or rigidity. SPINE: No scoliosis or deformity SKIN: No rashes CENTRAL NERVOUS SYSTEM: No focal deficits, tone is normal in all 4 extremities. EXTREMITIES: There is no peripheral edema. No clubbing, no cyanosis. Peripheral pulses are intact. - Labs CBC & Chem 7: 12/22/17 08:16 12/23/17 07:09 Labs: Abnormal Lab Results - Last 24 Hours (Table) 12/23/17 Range/Units 07:09 BUN 18 H (7-17) mg/dL Glucose 123 H (74-99) mg/dL Microbiology - Last 24 Hours (Table) 12/21/17 16:18 Gram Stain - Final Sputum Sputum Culture - Final 12/20/17 13:33 Blood Culture - Preliminary Blood No Growth after 48 hours Assessment and Plan Assessment: Assessment: #1. Acute exacerbation of mild intermittent asthma, due to influenza A tracheobronchitis. Chest x-ray is negative for any evidence of pneumonia. There is evidence of basilar atelectasis versus scarring. There is a chronic left upper lobe lung nodule that is being followed on an outpatient basis. #2. History of mild intermittent asthma, maintained on Advair, albuterol nebulized treatments #3. GERD/reflux #4. Hyperlipidemia, hypertension #5. Hypothyroidism #6. Remote history of smoking, quit 60 years ago #7. Osteoarthritis Plan: The patient was seen and evaluated by Dr. Terry. She is stable from the pulmonary standpoint and could be discharged home today. She'll complete her course of antibiotics, Tamiflu and prednisone taper. Continue her home pulmonary medications. Follow up with Dr. Tiwari in our office in 1-2 weeks' time. She is encouraged however to call sooner with any recurrence of symptoms or other questions or concerns. I, the cosigning physician, performed a history & physical examination of the patient. Lungs sounds are clear. Maintaining good O2 saturations in the 90s on room air. I discussed the assessment and plan of care with my nurse practitioner, Pretty Mitchell. I attest to the above note as dictated by her.
[2017-12-23 15:44] VITALS: BP 126/59; PULSE 67; TEMP 97.2
--- NOTE | 2018-01-08 22:09 | P.DS ---
Providers Date of admission: 12/20/17 15:45 Expected date of discharge: 12/23/17 Attending physician: Sacha Agarwal Consults: 12/20/17 15:45 Consult Physician Routine Consulting Provider: Nicki Tiwari Consult Reason/Comments: dyspnea Do you want consulting provider notified?: Yes Primary care physician: Nicki Tiwari Hospital Course: Discharge diagnosis #1. Acute exacerbation of mild intermittent asthma, due to influenza A tracheobronchitis. Chest x-ray is negative for any evidence of pneumonia. There is evidence of basilar atelectasis versus scarring. There is a chronic left upper lobe lung nodule that is being followed on an outpatient basis. #2. History of mild intermittent asthma, maintained on Advair, albuterol nebulized treatments #3. GERD/reflux #4. Hyperlipidemia, hypertension #5. Hypothyroidism #6. Remote history of smoking, quit 60 years ago #7. Osteoarthritis Hospital course. Patient is a 82-year-old female was admitted to the hospital with exacerbation of asthma and influenza A positive. Patient was continued on breathing treatments and steroids and symptomatic management. Patient did improve clinically and is stable to be discharged home. Patient was seen by pulmonary while in the hospital. Discharge physical examination GENERAL EXAM: Alert, active, comfortable in no apparent distress. HEAD: Normocephalic. EYES: Normal reaction of pupils, equal size. NOSE: Clear with pink turbinates. THROAT: No erythema or exudates. NECK: No masses, no JVD. CHEST: No chest wall deformity. LUNGS: Equal air entry with no crackles, wheeze, rhonchi or dullness. CVS: S1 and S2 normal with no audible murmur, regular rhythm. ABDOMEN: No hepatosplenomegaly, normal bowel sounds, no guarding or rigidity. SPINE: No scoliosis or deformity SKIN: No rashes CENTRAL NERVOUS SYSTEM: No focal deficits, tone is normal in all 4 extremities. EXTREMITIES: There is no pedal edema Patient Condition at Discharge: Stable Plan - Discharge Summary Discharge Rx Participant: Yes New Discharge Prescriptions: New Levofloxacin [Levaquin] 750 mg PO DAILY@1200 4 Days #4 tab Oseltamivir [Tamiflu] 75 mg PO Q12HR #3 cap predniSONE See Taper PO DAILY #30 tab Albuterol Inhaler [Ventolin Hfa Inhaler] 2 puff INHALATION Q6HR PRN #1 inhaler PRN Reason: Shortness Of Breath Albuterol Nebulized [Ventolin Nebulized] 2.5 mg INHALATION Q6H PRN #30 nebu PRN Reason: Shortness Of Breath Continue Meloxicam 15 mg PO DAILY Atenolol 50 mg PO QAM Fluticasone/Salmeterol [Advair 250-50 Diskus] 1 puff INHALATION RT-BID [place]-3 Fatty Acids/Fish Oil [Fish Oil 1,000 mg Softgel] 1 tab PO DAILY Multivitamins, Thera [Multivitamin (formulary)] 1 tab PO DAILY Aspirin 81 mg PO DAILY amLODIPine [Norvasc] 10 mg PO HS Pantoprazole Sodium [Protonix] 40 mg PO BID Levothyroxine Sodium [Synthroid] 50 mcg PO DAILY Calcium 1,000 mg PO DAILY Ascorbic Acid [Vitamin C] 500 mg PO DAILY Discontinued methylPREDNISolone [Medrol Dose Pack] See Taper PO DIRECTED Azithromycin [Zithromax Z-pack] See Taper PO DIRECTED Discharge Medication List Aspirin 81 mg PO DAILY 02/09/15 [History] Atenolol 50 mg PO QAM 02/09/15 [History] Fluticasone/Salmeterol [Advair 250-50 Diskus] 1 puff INHALATION RT-BID 02/09/15 [History] Meloxicam 15 mg PO DAILY 02/09/15 [History] Multivitamins, Thera [Multivitamin (formulary)] 1 tab PO DAILY 02/09/15 [History ] [place]-3 Fatty Acids/Fish Oil [Fish Oil 1,000 mg Softgel] 1 tab PO DAILY [History] Ascorbic Acid [Vitamin C] 500 mg PO DAILY 12/20/17 [History] Calcium 1,000 mg PO DAILY 12/20/17 [History] Levothyroxine Sodium [Synthroid] 50 mcg PO DAILY 12/20/17 [History] Pantoprazole Sodium [Protonix] 40 mg PO BID 12/20/17 [History] amLODIPine [Norvasc] 10 mg PO HS 12/20/17 [History] Albuterol Inhaler [Ventolin Hfa Inhaler] 2 puff INHALATION Q6HR PRN #1 inhaler 12/23/17 [Rx] Albuterol Nebulized [Ventolin Nebulized] 2.5 mg INHALATION Q6H PRN #30 nebu 01/07 [Rx] Levofloxacin [Levaquin] 750 mg PO DAILY@1200 4 Days #4 tab 12/23/17 [Rx] Oseltamivir [Tamiflu] 75 mg PO Q12HR #3 cap 12/23/17 [Rx] predniSONE See Taper PO DAILY #30 tab 12/23/17 [Rx] Follow up Appointment(s)/Referral(s): Nicki Tiwari MD [Primary Care Provider] - 1-2 days Patient Instructions/Handouts: Influenza (DC) Activity/Diet/Wound Care/Special Instructions: Cardiac diet. Activity as tolerated. Care Plan Goals (MU): MAKE AN APPOINTMENT WITH YOUR PRIMARY CARE PROVIDER FOR THE NEXT 3 DAYS. Discharge Disposition: HOME SELF-CARE
--- NOTE | 2018-01-10 10:00 | CDI ---
Last Revision, September 2017 Documentation Clarification Form Date: 01/10/18 From: Pretty Whitley Phone: If you have a question regarding this query, please contact Ana Rosales at [phone] between 8am and 5pm. Admit Date: 12/20/2017 3:45:00 PM Patient Name: Ysabel Rodriguez Visit Number: [id number] Discharge Date: 12/23/17 ATTENTION: The Clinical Documentation Specialists (CDI) and [facility] Coding Staff appreciate your assistance in clarifying documentation. Please respond to the clarification below the line at the bottom and electronically sign. The CDI & [facility] Coding staff will review the response and follow-up if needed. Please note: Queries are made part of the Legal Health Record. If you have any questions, please contact the author of this message via ITS. Dr. Jaelyn Marquez Sepsis is documented in the ED note, H&P and in Dr. Agarwal's 12/21 and 12/22 progress notes. Patient history/risk factors: The patient was admitted with acute influenza A pneumonitis, possible bacterial component causing sepsis. Documentation in the discharge summary states that the chest x-ray is negative for any evidence of pneumonia and the the patient had influenza A tracheobronchitis. WBC/Left Shift: 12.6/11.3 on admission. Lactic acid: 1.0 on admission Blood cultures: No growth Vitals signs on admission: 98. - 100.6 on day of admit, P 90 - 100 on day of admit, R. 20, BP 120/63 Antibiotics: Aztreonam IV, Levofloxacin IV In your professional opinion, can you please clarify if sepsis was ruled in or ruled out? Unable to determine Other, please specify Sepsis ruled in MTDD
== END 2017-12-23 16:49 | disposition home or self-care (01) | DRG 872 ==
LOC: EC 13:01 → 4MS4W 15:45
PROVIDERS: ADMIT Hospitalist; ATTEND Hospitalist
DX: A41.89 Other specified sepsis (principal); J44.1 Chronic obstructive pulmonary disease with (acute) exacerbation; J45.21 Mild intermittent asthma with (acute) exacerbation; J98.11 Atelectasis; K21.9 Gastro-esophageal reflux disease without esophagitis; J10.1 Influenza due to other identified influenza virus with other respiratory manifestations; E03.9 Hypothyroidism, unspecified; E66.9 Obesity, unspecified; E78.5 Hyperlipidemia, unspecified; I10 Essential (primary) hypertension; M19.90 Unspecified osteoarthritis, unspecified site; R09.02 Hypoxemia; R91.1 Solitary pulmonary nodule; Z68.31 Body mass index [BMI] 31.0-31.9, adult; Z79.82 Long term (current) use of aspirin; Z79.899 Other long term (current) drug therapy; Z87.891 Personal history of nicotine dependence; Z96.651 Presence of right artificial knee joint; Z90.49 Acquired absence of other specified parts of digestive tract; Z91.040 Latex allergy status; Z88.0 Allergy status to penicillin; Z91.018 Allergy to other foods
CPT/HCPCS: 36415; 71046; 80048; 80053; 83605; 85025; 85610; 85730; 87040; 87070; 87205; 87502; 93005; 94640; 96365; 99291

== ENCOUNTER → 2020-03-02 | Outpatient (CLI) | payer MEDICARE ==
--- NOTE | 2020-03-02 17:08 | CT ---
EXAMINATION TYPE: CT angio chest DATE OF EXAM: 03/02/2020 COMPARISON: Chest x-ray earlier today HISTORY: PE. Right-sided chest pain and soreness. CT DLP: 443 mGycm. Automated Exposure Control for Dose Reduction was Utilized. CONTRAST: CTA scan of the thorax is performed without and with IV Contrast, patient injected with 100 ml mL of Isovue 370, pulmonary embolism protocol. MIP Images are created on CT scanner and reviewed. FINDINGS: LUNGS: Mild to moderate bibasilar linear scarring and/or atelectasis is present. Slightly more nodula r thickening or scarring anteriorly right lower lung noted near image 71. Slightly more suspicious no dule right mid to lower lung anteriorly measuring 9 x 9 mm axial images 63 is noted along site of vivian ear scarring. Small areas of nodular scarring superiorly medial to this are seen. Some patchy linear scarring and groundglass opacity anteriorly right mid lung near axial image 49 is present. Superior t o this there is reticulation and groundglass opacity with some mild bronchiectatic changes in the per iphery of the right upper lobe axial image 44 reference. Left lung predominantly clear with some pat roldan reticular and slightly nodular opacity superior aspect left lower low back image 53. There is no pleural effusion or pneumothorax seen bilaterally. The tracheobronchial tree is patent. MEDIASTINUM: There is satisfactory enhancement of the pulmonary artery and its branches, there is no CT evidence for pulmonary embolism. There are no greater than 1 cm hilar or mediastinal lymph nodes. No cardiomegaly or pericardial effusion is seen. Enlarged main pulmonary artery at 3.2 cm image 49 , CT findings consistent with underlying pulmonary hypertension. Somewhat small size thyroid gland. M ild calcified plaque of the aorta extends into branch vessels. OTHER: S-shaped scoliosis with multilevel mild spurring. IMPRESSION: 1. No CT evidence for acute pulmonary embolism. 2. [id number] chronic parenchymal changes with areas of acute infiltrate suspected, most concer ananya area is in the right upper lobe periphery axial image 40 for reference, Covid pneumonia in diffe rential. Other etiologies not excluded.
== END | disposition home or self-care (01) ==
LOC: RADCTMAIN 15:17
PROVIDERS: ATTEND Internal Medicine
DX: R06.02 Shortness of breath (principal); Z88.0 Allergy status to penicillin; Z88.1 Allergy status to other antibiotic agents
CPT/HCPCS: 82565; 84520; 71275; Q9967

== ENCOUNTER → 2021-02-16 | Outpatient (CLI) | payer MEDICARE ==
--- NOTE | 2021-02-16 15:29 | CT ---
EXAMINATION TYPE: CT chest w con DATE OF EXAM: 02/16/2021 COMPARISON: CTA chest 03/02/2020. HISTORY: Lung Nodule CT DLP: 338.6 mGycm. Automated Exposure Control for Dose Reduction was Utilized. TECHNIQUE: CT scan of the thorax is performed following with IV Contrast, patient injected with 100m l mL of Isovue 300. FINDINGS: LUNGS: At site of prior scarlike opacity and cystic change in the right upper lobe there are new area s of nodularity, largest measures 11 x 10 mm axial image 19 series 4. They are fairly low density sug gesting benign etiology. There is thickened soft tissue along the right lung fissure anteriorly in th e right mid lung inferior to this with some slight nodular component redemonstrated. This shows no in terval progression. Left lung shows mild to moderate linear scarring and/or atelectasis in the base. Stable right apical 11 x 4 mm tubular shaped opacity sagittal image 49 possible endobronchial or brandon gated lesion. MEDIASTINUM: There are no new greater than 1 cm hilar or mediastinal lymph nodes. No cardiomegaly o r pericardial effusion is seen. Mild to moderate peripheral plaque in the aorta. Focal coronary kaitlyn ry calcification and/or stent in the proximal LAD. OTHER: Cholecystectomy clips. Disc space narrowing with sclerosis right L2-L3 level. IMPRESSION: Confirmation of pulmonary nodule formation right upper lobe. Consider PET/CT to further e valuate.
== END | disposition home or self-care (01) ==
LOC: RADCTMAIN 12:56
PROVIDERS: ATTEND Internal Medicine
DX: R91.1 Solitary pulmonary nodule (principal)
CPT/HCPCS: 82565; 84520; 71260; 36415; Q9967

== ENCOUNTER → 2021-08-23 | Outpatient (CLI) | payer MEDICARE ==
--- NOTE | 2021-08-24 17:11 | CT ---
EXAMINATION TYPE: CT chest w con DATE OF EXAM: 08/23/2021 COMPARISON: 02/16/2021, 03/02/2020 HISTORY: 86-year-old female R91.1 Lung nodule TECHNIQUE: Contiguous axial scanning of the chest after the administration of 100 ml mL of Isovue 300 . Coronal/sagittal reconstructions performed. CT DLP: 477mGycm. Automatic exposure control utilized for a dose reduction. FINDINGS: Heart normal size without pericardial effusion. Proximal to mid LAD coronary artery calcifications ar e present. Mild atelectatic arch calcifications. Aorta normal caliber with conventional arch vessel branching an atomy. No thoracic lymphadenopathy by CT size criteria. Large caliber to the main right and left pulmonary arteries are 2.9 and 2.5 cm, respectively, suggest ing underlying pulmonary arterial hypertension. Very mild emphysematous change. - Medial right upper lobe 7 mm nodularity, unchanged. - Clustered nodularity anterior right upper lobe with individual nodules measuring up to 1.1 cm and o verall aggregate measuring up to 2.6 cm is unchanged from 02/16/2021 but larger from 03/02/2020. - Nodular thickening along the inferior right major fissure with nodules measuring up to 1.0 cm are u nchanged back to 03/02/2020. Strandy atelectasis in the lower lungs. No consolidation or pleural effusion. Similar distended bile duct measuring up to 1.4 cm, status post cholecystectomy. Bones: Slight accentuated mid to lower thoracic kyphosis. IMPRESSION: 1. COPD with mild emphysema. Pulmonary arterial hypertension. 2. Scattered right lung nodularity remains indeterminate. 7 mm medial right upper lobe nodule and nod ular thickening along the inferior major fissure measuring up to 1.0 cm are stable for 1.5 years. Clu stered nodularity anterior right upper lobe with the largest nodule measuring up to 1.1 cm is stable for only 6 months. 3. Ongoing follow-up recommended to exclude indolent neoplasm.
== END | disposition home or self-care (01) ==
LOC: RADCTMAIN 12:47
PROVIDERS: ATTEND Internal Medicine
DX: J43.9 Emphysema, unspecified (principal); I27.21 Secondary pulmonary arterial hypertension; R91.8 Other nonspecific abnormal finding of lung field
CPT/HCPCS: 82565; 84520; 71260; 36415; Q9967

== ENCOUNTER 2022-08-22 09:42 | Emergency (ER) | payer MEDICARE ==
[2022-08-22] MEDS ORDERED: SODIUM CHLORIDE 0.9% 1,000 ML IV STA (10:08)
[2022-08-22] MEDS ORDERED: ACETAMINOPHEN TAB 500 MG TAB PO STA (10:09)
--- NOTE | 2022-08-22 10:17 | ED ---
General Adult HPI - General Chief complaint: Abdominal Pain Stated complaint: flank pain Time Seen by Provider: 08/22/22 09:55 Source: patient, RN notes reviewed, old records reviewed Mode of arrival: ambulatory Limitations: no limitations - History of Present Illness Initial comments: Patient is an 87-year-old female with past medical history remarkable for hypertension, COPD, acid reflux who presents emergency Department complaining of left flank pain for approximately 1 week. It is worse when laying on that side. Somewhat worse with movement. Has been attempting to use Tylenol as well as hot packs to control the pain. States the rash did start to develop, however she attributes it to using hot packs. States it does radiate around her left flank. Denies any hematuria or dysuria. Does have a history of diverticulosis. Denies any vin anterior abdominal pain. Denies nausea or vomiting. Denies change in stooling. Denies any blood in her stool. Has no known history of kidney stones but is concerned regarding this. States she is being frequently. Denies any starring spells. Denies any fevers, chills. Denies any sick contact s. Denies any chest pain, as of breath. Presents for further evaluation at this time. - Related Data Home Medications Medication Instructions Recorded Confirmed Atenolol 50 mg PO DAILY 02/09/15 08/22/22 Fluticasone Propion/Salmeterol 1 puff INHALATION RT-BID 02/09/15 08/22/22 [Advair 250-50 Diskus] Calcium 1,000 mg PO DAILY 12/20/17 08/22/22 Levothyroxine Sodium [Synthroid] 50 mcg PO AC-BRKFST 12/20/17 08/22/22 Pantoprazole Sodium [Protonix] 40 mg PO BID 12/20/17 08/22/22 amLODIPine [Norvasc] 10 mg PO DAILY 12/20/17 08/22/22 Acetaminophen [Tylenol] 325 mg PO DAILY 08/22/22 08/22/22 Biotin 5 mg PO DAILY 08/22/22 08/22/22 Dicyclomine [Bentyl] 10 mg PO QID 08/22/22 08/22/22 Metoclopramide [Reglan] 5 mg PO BID PRN 08/22/22 08/22/22 Multivit-Min/FA/Lycopen/Lutein 1 tab PO DAILY 08/22/22 08/22/22 [Centrum Silver Tablet] Previous Rx's Medication Instructions Recorded Dicyclomine [Bentyl] 10 mg PO TID PRN 7 Days #21 capsule 08/22/22 Sulfamethox-Tmp 800-160Mg [Bactrim 1 tab PO Q12HR 7 Days #14 tab 08/22/22 DS 800-160 mg] Allergies Allergy/AdvReac Type Severity Reaction Status Date / Time latex Allergy Rash/Hives Verified 08/22/22 12:17 Penicillins Allergy Rash/Hives Verified 08/22/22 12:17 Mushroom AdvReac Nausea & Verified 08/22/22 12:17 Vomiting Review of Systems ROS Statement: Those systems with pertinent positive or pertinent negative responses have been documented in the HPI. Review of Systems: CONST: Denies fever EYES: Denies blurry vision ENT: Denies nasal congestion C/V: Denies Chest pain RESP: Denies shortness of breath GI: Endorses left flank pain : Endorses polyuria SKIN: Denies rash. MSK: Denies joint pain. NEURO: Denies headache ROS Other: All systems not noted in ROS Statement are negative. Past Medical History Past Medical History: COPD, GERD/Reflux, Hyperlipidemia, Hypertension, Thyroid Disorder Additional Past Medical History / Comment(s): SEVERE ACID REFLUX AND DIFFICULTY SWALLOWING MEAT AND CERTAIN FOODS. History of Any Multi-Drug Resistant Organisms: None Reported Past Surgical History: Cholecystectomy, Joint Replacement Additional Past Surgical History / Comment(s): RT KNEE REPLACEMENT, COLONOSCOPY, rhoda cataracts Past Anesthesia/Blood Transfusion Reactions: No Reported Reaction Past Psychological History: No Psychological Hx Reported Smoking Status: Never smoker Past Alcohol Use History: Rare Past Drug Use History: None Reported - Past Family History Mother Family Medical History: Unable to Obtain Sister(s) Family Medical History: Deep Vein Thrombosis (DVT) Father Family Medical History: Deep Vein Thrombosis (DVT) Brother(s) Family Medical History: Deep Vein Thrombosis (DVT) General Exam - General Exam Comments Initial Comments: General: Appears in no acute distress. HEAD: Normal with no signs of head trauma. EYES: PERRLA, EOMI, conjunctiva normal, no discharge. ENT: Hearing grossly intact, normal oropharynx. RESPIRATORY: Clear breath sounds bilaterally. No wheezes, rales, or rhonchi. C/V: Regular rate and rhythm. S1 and S2 auscultated, no edema, peripheral pulses 2+ and intact throughout ABD: Abd is soft, nontender, nondistended. Patient does have some left flank pain tenderness to palpation with radiation towards the left CVA. No right sided CVA tenderness to percussion. No guarding. No peritoneal signs. No rebound tenderness. EXT: Normal range of motion, no obvious deformity SKIN: He is to have for that looks like a contact dermatitis along the path of her long hot pack that she uses. The skin itself is nontender. NEURO: Alert and oriented 4. Limitations: no limitations Course Vital Signs 08/22/22 08/22/22 08/22/22 09:44 13:10 14:20 Temperature 97.6 F 97.5 F L Pulse Rate 82 60 65 Respiratory 20 18 18 Rate Blood Pressure 145/76 147/70 136/77 O2 Sat by Pulse 99 96 96 Oximetry Medical Decision Making - Medical Decision Making Based on the patient's presentation and physical exam, I'm concerned for possible kidney stone for the patient but cannot rule out other intra-abdominal causes. I also contact completely rule out shingles at this time, we did discuss that the rash, despite her using a hot pack in the same distribution appears to be dermatomal in nature. We will work her up for other etiologies at this time as she is convinced of this from the hot pack. She was in agreement this plan. The skin is not tender. She describes it as a sharp sensation. Vital signs are within acceptable limits. She requests only Tylenol for pain control at this time. Patient's laboratory studies remarkable for a large, leukocyte esterase seen on UA. Laboratory studies are otherwise unremarkable. X-rays were interpreted by myself. KUB x-ray revealed possibly atelectasis versus infiltrate in the left lung base. Likely atelectasis as she has no upper history symptoms. There is a mild amount stool in the colon, as well as what looks to be enteritis. Patient's ultrasound showed no signs of hydronephrosis or renal stone. I reevaluated the patient she still having some mild pain. She'll be given Toradol. We discussed desired to obtain CT imaging. She was in agreement this plan. CT abdomen and pelvis revealed enteritis, but no diverticulitis, and no other acute findings at this time. I did discuss with her with the early signs of possible UTI would like to start her on antibiotics and she was in agreement with this plan. She also be given Bentyl. This is likely the cause of her abdominal pain. Also be secondary to colitis but she really has no symptoms at this point. She was in agreement this plan would like to go home. I was in agreement with this. I will provide the patient with a prescription for Bentyl, Bactrim. I instructed the patient to follow up with their PCP in the next 1-3 days. I explained that the patient should return to the emergency department if they experience any worsening symptoms. Strict return precautions were discussed with the patient. The patient expressed understanding of these instructions. I answered all questions that the patient had. The patient was discharged home in good condition with their prescriptions and follow up information. - Lab Data Result diagrams: 08/22/22 10:08/22/22 10: Lab Results 08/22/22 08/22/22 08/22/22 Range/Units 10: 10: 10: WBC 6.5 (3.8-10.6) k/uL RBC 4.93 (3.80-5.40) m/uL Hgb 15.3 (11.4-16.0) gm/dL Hct 45.5 (34.0-46.0) % MCV 92.3 (80.0-100.0) fL MCH 31.0 (25.0-35.0) pg MCHC 33.6 (31.0-37.0) g/dL RDW 13.2 (11.5-15.5) % Plt Count 230 (150-450) k/uL MPV 9.0 Neutrophils % 74 % Lymphocytes % 13 % Monocytes % 7 % Eosinophils % 3 % Basophils % 1 % Neutrophils # 4.8 (1.3-7.7) k/uL Lymphocytes # 0.9 L (1.0-4.8) k/uL Monocytes # 0.5 (0-1.0) k/uL Eosinophils # 0.2 (0-0.7) k/uL Basophils # 0.1 (0-0.2) k/uL PT 9.8 (9.0-12.0) sec INR 0.9 (<1.2) APTT 22.1 (22.0-30.0) sec Sodium 137 (137-145) mmol/L Potassium 4.1 (3.5-5.1) mmol/L Chloride 104 (98-107) mmol/L Carbon Dioxide 23 (22-30) mmol/L Anion Gap 10 mmol/L BUN 15 (7-17) mg/dL Creatinine 0.57 (0.52-1.04) mg/dL Est GFR (CKD-EPI)AfAm >90 (>60 ml/min/1.73 sqM) Est GFR (CKD-EPI)NonAf 85 (>60 ml/min/1.73 sqM) Glucose 115 H (74-99) mg/dL Plasma Lactic Acid [place] (0.7-2.0) mmol/L Calcium 9.7 (8.4-10.2) mg/dL Total Bilirubin 0.5 (0.2-1.3) mg/dL AST 38 H (14-36) U/L ALT 29 (4-34) U/L Alkaline Phosphatase 100 (38-126) U/L Total Protein 6.5 (6.3-8.2) g/dL Albumin 4.2 (3.5-5.0) g/dL Amylase 51 (30-110) U/L Lipase 93 (23-300) U/L Urine Color Urine Appearance (Clear) Urine pH (5.0-8.0) Ur Specific [place] (1.001-1.035) Urine Protein (Negative) Urine Glucose (UA) (Negative) Urine Ketones (Negative) Urine Blood (Negative) Urine Nitrite (Negative) Urine Bilirubin (Negative) Urine Urobilinogen (<2.0) mg/dL Ur Leukocyte Esterase (Negative) Urine RBC (0-5) /hpf Urine WBC (0-5) /hpf Ur Squamous Epith Cells (0-4) /hpf Calcium Oxalate Crystal (None) /hpf Urine Mucus (None) /hpf 08/22/22 08/22/22 Range/Units 10: 11:27 WBC (3.8-10.6) k/uL RBC (3.80-5.40) m/uL Hgb (11.4-16.0) gm/dL Hct (34.0-46.0) % MCV (80.0-100.0) fL MCH (25.0-35.0) pg MCHC (31.0-37.0) g/dL RDW (11.5-15.5) % Plt Count (150-450) k/uL MPV Neutrophils % % Lymphocytes % % Monocytes % % Eosinophils % % Basophils % % Neutrophils # (1.3-7.7) k/uL Lymphocytes # (1.0-4.8) k/uL Monocytes # (0-1.0) k/uL Eosinophils # (0-0.7) k/uL Basophils # (0-0.2) k/uL PT (9.0-12.0) sec INR (<1.2) APTT (22.0-30.0) sec Sodium (137-145) mmol/L Potassium (3.5-5.1) mmol/L Chloride (98-107) mmol/L Carbon Dioxide (22-30) mmol/L Anion Gap mmol/L BUN (7-17) mg/dL Creatinine (0.52-1.04) mg/dL Est GFR (CKD-EPI)AfAm (>60 ml/min/1.73 sqM) Est GFR (CKD-EPI)NonAf (>60 ml/min/1.73 sqM) Glucose (74-99) mg/dL Plasma Lactic Acid [place] 1.5 (0.7-2.0) mmol/L Calcium (8.4-10.2) mg/dL Total Bilirubin (0.2-1.3) mg/dL AST (14-36) U/L ALT (4-34) U/L Alkaline Phosphatase (38-126) U/L Total Protein (6.3-8.2) g/dL Albumin (3.5-5.0) g/dL Amylase (30-110) U/L Lipase (23-300) U/L Urine Color Yellow Urine Appearance Cloudy H (Clear) Urine pH 7.0 (5.0-8.0) Ur Specific [place] 1.024 (1.001-1.035) Urine Protein Trace H (Negative) Urine Glucose (UA) Negative (Negative) Urine Ketones Negative (Negative) Urine Blood Negative (Negative) Urine Nitrite Negative (Negative) Urine Bilirubin Negative (Negative) Urine Urobilinogen <2.0 (<2.0) mg/dL Ur Leukocyte Esterase Large H (Negative) Urine RBC <1 (0-5) /hpf Urine WBC 3 (0-5) /hpf Ur Squamous Epith Cells 2 (0-4) /hpf Calcium Oxalate Crystal Many H (None) /hpf Urine Mucus Occasional H (None) /hpf Disposition Clinical Impression: Abdominal pain of unknown etiology, Enteritis Disposition: HOME SELF-CARE Condition: Good Instructions (If sedation given, give patient instructions): Urinary Tract Infection in Women (ED), Abdominal Pain (ED) Prescriptions: Sulfamethox-Tmp 800-160Mg [Bactrim DS 800-160 mg] 1 tab PO Q12HR 7 Days #14 tab Dicyclomine [Bentyl] 10 mg PO TID PRN 7 Days #21 capsule PRN Reason: Pain Is patient prescribed a controlled substance at d/c from ED?: No Referrals: Bruce Newsome MD [Primary Care Provider] - 1-2 days Time of Disposition: 13:40
[2022-08-22 10:35] LABS: Basophils # (A) 0.1 k/uL (0-0.2); Basophils % (A) 1 %; Eosinophils # (A) 0.2 k/uL (0-0.7); Eosinophils % (A) 3 %; HCT 45.5 % (34.0-46.0); HGB 15.3 gm/dL (11.4-16.0); Lymphocytes # (A) 0.9 k/uL (1.0-4.8); Lymphocytes % (A) 13 %; MCHC 33.6 g/dL (31.0-37.0); MCV 92.3 fL (80.0-100.0); Monocytes # (A) 0.5 k/uL (0-1.0); Monocytes % (A) 7 %; Neutrophils # (A) 4.8 k/uL (1.3-7.7); Neutrophils % (A) 74 %; Platelet Count 230 k/uL (150-450); RBC 4.93 m/uL (3.80-5.40); RDW 13.2 % (11.5-15.5); WBC 6.5 k/uL (3.8-10.6)
[2022-08-22 10:49] LABS: INR 0.9 (<1.2); Partial Thromboplastin Time 22.1 sec (22.0-30.0); Prothrombin Time 9.8 sec (9.0-12.0)
[2022-08-22 10:59] LABS: ALT 29 U/L (4-34); AST 38 U/L (14-36); African American GFR (CKD) >90 (>60 ml/min/1.73 sqM); Albumin 4.2 g/dL (3.5-5.0); Alkaline Phosphatase 100 U/L (38-126); Amylase 51 U/L (30-110); Anion Gap 10 mmol/L; Blood Urea Nitrogen 15 mg/dL (7-17); Calcium 9.7 mg/dL (8.4-10.2); Carbon Dioxide 23 mmol/L (22-30); Chloride 104 mmol/L (98-107); Glucose 115 mg/dL (74-99); Lipase 93 U/L (23-300); Non-African American GFR(CKD) 85 (>60 ml/min/1.73 sqM); Potassium 4.1 mmol/L (3.5-5.1); Sodium 137 mmol/L (137-145); Total Bilirubin 0.5 mg/dL (0.2-1.3); Total Protein 6.5 g/dL (6.3-8.2)
--- NOTE | 2022-08-22 11:24 | XR ---
EXAMINATION TYPE: XR KUB DATE OF EXAM: 08/22/2022 Comparison: None Clinical History: 87-year-old female posterior left-sided abdominal pain Findings: Mild patchy density at the left base. No evidence for free intraperitoneal air. Cholecystectomy clips . Small air-fluid levels on the right side of the colon. No dilated small bowel or air-fluid levels. [id number] stool in the lower rectum. Degenerated levoconvex scoliosis lumbar spine. Pelvic phl eboliths. Impression: 1. Some patchy atelectasis versus developing infiltrate at the left base. Correlate with patient's sy mptoms. 2. No evidence for free air or bowel obstruction. Mild stool distally in the colon. 3. Small air-fluid levels along the ascending colon could reflect liquid stool related to an enteriti s or a regional ileus.
--- NOTE | 2022-08-22 11:50 | US ---
EXAMINATION TYPE: US renals and bladder DATE OF EXAM: 08/22/2022 COMPARISON: NONE CLINICAL HISTORY: 87 year old female left flank pain. Pain on the left. EXAM MEASUREMENTS: Right Kidney: 9.5 x 4.7 x 3.7 cm Left Kidney: 9.6 x 3.7 x 3.0 cm Right Kidney: No hydronephrosis or masses seen Left Kidney: No hydronephrosis or masses seen Bladder: Nondistention of the bladder limits its evaluation. Bilateral Jets seen: no IMPRESSION: No hydronephrosis. Nondistention of the bladder limits its evaluation.
[2022-08-22 12:01] LABS: Appearance,Urine Cloudy (Clear); Color,Urine Yellow; Glucose,Urine (UA) Negative (Negative); Ketones,Urine Negative (Negative); Protein,Urine Trace (Negative); Specific Gravity,Urine 1.024 (1.001-1.035)
[2022-08-22 12:02] LABS: Bilirubin,Urine Negative (Negative); Blood,Urine Negative (Negative); Calcium Oxalate Crystals,Urine Many /hpf; Leukocyte Esterase,Urine Large (Negative); Mucus,Urine Occasional /hpf; Nitrite,Urine Negative (Negative); RBC,Urine <1 /hpf (0-5); Squamous Epithelial Cell,Urine 2 /hpf (0-4); Urobilinogen,Urine <2.0 mg/dL (<2.0); WBC,Urine 3 /hpf (0-5)
[2022-08-22] MEDS ORDERED: KETOROLAC 15 MG/ML 1 ML VIAL IVP STA (12:23)
[2022-08-22 13:11] VITALS: RESP 18
--- NOTE | 2022-08-22 13:25 | CT ---
EXAMINATION TYPE: CT abdomen pelvis w con DATE OF EXAM: 08/22/2022 COMPARISON: 08/23/2021 INDICATION: Flank pain DLP: 957.9 mGycm, Automated exposure control for dose reduction was used. CONTRAST: 100 mL of Isovue 300. Study performed without Oral Contrast TECHNIQUE: Axial images were obtained from above the diaphragm to the pubic rami in the axial plane a t 5 mm thick sections. Reconstructed images are reviewed on the computer in the coronal plane. FINDINGS: Limited CT sections are obtained the lung bases. Some minimal subsegmental atelectasis is likely pre sent at the left lung base. CT ABDOMEN: Liver: Normal Spleen: Normal Pancreas: Normal Adrenal glands: The adrenal glands are normal. Gallbladder: Prior cholecystectomy. Surgical clips are present. Kidneys: No masses are evident. No hydronephrosis or hydroureter is present. Extrarenal pelves may be present. No cysts are present. No obvious stones present. Delayed images were obtained through the kidneys, which remain unremarkable. Aorta: Vascular calcification is within the aorta. Inferior vena cava: Normal. CT PELVIS: Minimal diffuse wall thickening to the proximal and mid sigmoid colon can be related to decompression or mild colitis. Correlate with symptoms. Few scattered diverticula or within the proximal sigmoid c olon. This study is without oral contrast Limited following evaluation. Appendix: Not visualized. No dilated tubular structure or inflammatory changes are evident. Urinary bladder: Normal. Genitourinary structures: Uterus appears unremarkable. Adnexal region is clear. Osseous structures: No suspicious lytic or sclerotic lesions. Degenerative disc changes are in the lo wer lumbar spine. IMPRESSIONS: 1. Clinical consideration for mild colitis within the proximal sigmoid colon. 2. Mild Diverticulosis without acute diverticulitis. 3. No suspicious abnormality root compromise flank pain otherwise evident.
[2022-08-22] MEDS ORDERED: SULFAMETHOX-TMP 800-160MG 1 EACH TAB PO STA (13:54)
[2022-08-22 14:27] VITALS: BP 136/77; PULSE 65; TEMP 97.5
== END 2022-08-22 14:27 | disposition home or self-care (01) ==
LOC: EC 09:42
DX: K52.9 Noninfective gastroenteritis and colitis, unspecified (principal); J44.9 Chronic obstructive pulmonary disease, unspecified; K21.9 Gastro-esophageal reflux disease without esophagitis; E78.5 Hyperlipidemia, unspecified; I10 Essential (primary) hypertension; E07.9 Disorder of thyroid, unspecified; Z90.49 Acquired absence of other specified parts of digestive tract; Z91.040 Latex allergy status; Z88.0 Allergy status to penicillin; Z91.018 Allergy to other foods; Z79.899 Other long term (current) drug therapy; Z79.890 Hormone replacement therapy
CPT/HCPCS: 96374; 96361; 36415; 93005; 80053; 82150; 83605; 83690; 85025; 85610; 85730; 81001; 74018; 76770; 74177; 99285; J1885; Q9967; 99284